=== PATIENT | male | born 1945 | race Caucasian/White ===

== ENCOUNTER 2021-09-12 14:11 | Outpatient (CLI) | payer MEDICARE | END 2021-09-12 14:12 | disposition home or self-care (01) | LOC: CT 14:11 | PROVIDERS: ATTEND Student in an Organized Health Care Education/Training Program | DX: C80.1 Malignant (primary) neoplasm, unspecified (principal); J98.11 Atelectasis | CPT/HCPCS: 70491; 71260; 82565 ==

== ENCOUNTER 2021-11-23 14:56 | Outpatient (CLI) | payer MEDICARE | END 2021-11-23 14:57 | disposition home or self-care (01) | LOC: PET 14:56 | PROVIDERS: ATTEND Radiology Radiation Oncology | DX: C09.1 Malignant neoplasm of tonsillar pillar (anterior) (posterior) (principal); K13.79 Other lesions of oral mucosa; C77.0 Secondary and unspecified malignant neoplasm of lymph nodes of head, face and neck; J39.2 Other diseases of pharynx | CPT/HCPCS: 78815; A9552 ==

== ENCOUNTER 2022-01-07 15:31 | Inpatient (IN) | payer OTHER, MEDICARE ==
[2022-01-07 16:44] LABS: #Lymphocytes 0.2 thou/uL (1.20-3.40); #Monocytes 0.2 thou/uL (0.11-0.59); #Neutrophils 1.1 thou/uL (1.40-6.50); %Eosinophils 0.1 % (0.0-10.0); %Lymphocytes 12.8 % (21.0-51.0); %Monocytes 12.4 % (0.0-10.0); %Neutrophils 74.7 % (42.0-75.0); Mean Corpuscular HGB CONC 34.1 g/dL (32.0-36.0); Mean Corpuscular Hemoglobin 32.9 pg (27.0-31.0); Mean Corpuscular Volume 96.3 fL (78.0-98.0); Mean Platelet Volume 7.8 fL (7.4-10.4); Platelet Count 39 thou/uL (130-400); RBC Distribution Width 10.8 % (11.5-14.5); Red Blood Cell (RBC) Count 3.03 mill/uL (4.70-6.10); White Blood Cell (WBC) Count 1.5 thou/uL (4.8-10.8)
[2022-01-07 17:01] LABS: Platelet Morphology Comment Appears Decreased; RBC Morphology Normal
[2022-01-07 17:07] LABS: ALT (SGPT) 25 U/L (8-55); AST (SGOT) 27 U/L (5-34); Albumin 3.6 g/dL (3.4-4.8); Alkaline Phosphatase 95 U/L (40-110); Anion Gap 18 mmol/L (10-20); BUN (Urea Nitrogen) 49 mg/dL (8.4-25.7); Bilirubin, Total 1.1 mg/dL (0.2-1.2); Calc. Creatinine Clearance 0 mL/min (70-130); Calcium 6.5 mg/dL (7.8-10.44); Carbon Dioxide 36 mmol/L (23-31); Chloride 92 mmol/L (98-107); Globulin 2.9 g/dL (2.4-3.5); Glucose 195 mg/dL (83-110); Protein, Total 6.5 g/dL (5.8-8.1); Sodium 143 mmol/L (136-145)
[2022-01-07 17:15] LABS: Potassium 2.6 mmol/L (3.5-5.1)
[2022-01-07 17:19] LABS: CKMB 0.3 ng/mL (0-6.6)
[2022-01-07] MEDS ORDERED: Calcium Gluc 4.6 MEQ/10 ML (100 MG/ML) ONE (17:24)
[2022-01-07] MEDS ORDERED: Potassium Chloride 20 MEQ TAB ONE (17:24)
[2022-01-07] MEDS ORDERED: Aspirin Chewable 81 MG TAB ONE ×2 (17:35→17:53)
[2022-01-07] MEDS ORDERED: Aspirin 325 MG TAB ONE (17:50)
[2022-01-07] MEDS ORDERED: Promethazine HCl 25 MG/ML VIAL IM PRN (19:39)
[2022-01-07] MEDS ORDERED: Acetaminophen 325 MG TAB PO PRN (19:39)
[2022-01-07] MEDS ORDERED: Ondansetron PF 4 MG/2 ML Vial IVP PRN (19:39)
[2022-01-07] MEDS ORDERED: hydrALAZINE 20 MG/ML VIAL SLOW IVP PRN (19:39)
[2022-01-07] MEDS ORDERED: Potassium Chloride 20 MEQ in Lactated Ringer's 1,000 ML IV SCH (19:45)
[2022-01-07] MEDS ORDERED: Lactated Ringer's 1,000 ML IV SCH (20:00)
[2022-01-07] MEDS ORDERED: Magnesium Sulfate 3 GM in Sodium Chloride 0.9% 100 ML IV SCH (20:00)
[2022-01-07] MEDS ORDERED: Calcium Chloride 13.6 MEQ in Sodium Chloride 0.9% 100 ML IVPB SCH (20:00)
[2022-01-07 20:15] LABS: Troponin I 0.046 ng/mL (< 0.028)
[2022-01-07] MEDS ORDERED: Sodium Chloride 0.9% 1,000 ML IV SCH (21:00)
[2022-01-07 22:19] LABS: Troponin I 0.052 ng/mL (< 0.028)
[2022-01-07] MEDS: Potassium Chloride 10 MEQ in Premix Bag 1 BAG IVPB SCH (23:10)
[2022-01-08] MEDS: Potassium Chloride 10 MEQ in Premix Bag 1 BAG IVPB SCH ×2 (00:12→01:18)
[2022-01-08] MEDS: Famotidine/PF 20 mg/2ml Vial SLOW IVP SCH ×2 (01:18→20:17)
[2022-01-08 03:46] LABS: INR-International Normal Ratio 1.2; PTT 35.4 sec (22.9-36.1); Prothrombin Time 15.1 sec (12.0-14.7)
[2022-01-08 03:56] LABS: Anion Gap 20 mmol/L (10-20); BUN (Urea Nitrogen) 44 mg/dL (8.4-25.7); Calc. Creatinine Clearance 23 mL/min (70-130); Calcium 7.5 mg/dL (7.8-10.44); Carbon Dioxide 24 mmol/L (23-31); Chloride 101 mmol/L (98-107); Glucose 96 mg/dL (83-110); Magnesium 2.2 mg/dL (1.6-2.6); Phosphorus 2.2 mg/dL (2.3-4.7); Sodium 142 mmol/L (136-145)
[2022-01-08 04:03] LABS: Band 4 % (5-11); Hemoglobin 8.8 g/dL (14.0-18.0); Hypochromia SLIGHT = 6-15 cells (100X) (0-5/hpf); Lymphocytes 16 % (21-51); MDiff Complete? YES; Mean Corpuscular Hemoglobin 32.9 pg (27.0-31.0); Mean Corpuscular Volume 96.8 fL (78.0-98.0); Mean Platelet Volume 6.8 fL (7.4-10.4); Monocytes 16 % (0-10); Neutrophil 64 % (42-75); Platelet Count 129 thou/uL (130-400); Platelet Morphology Comment Appears Adequate; RBC Distribution Width 10.7 % (11.5-14.5); Red Blood Cell (RBC) Count 2.69 mill/uL (4.70-6.10); White Blood Cell (WBC) Count 1.6 thou/uL (4.8-10.8)
[2022-01-08] MEDS ORDERED: Potassium Phosphate 30 MMOL in Sodium Chloride 0.9% 250 ML 250 ML IVPB SCH (04:15)
[2022-01-08] MEDS ORDERED: Loratadine 10 MG TAB PO SCH (21:00)
[2022-01-09 04:48] LABS: Hemoglobin 8.8 g/dL (14.0-18.0); Mean Corpuscular HGB CONC 34.8 g/dL (32.0-36.0); Mean Corpuscular Hemoglobin 33.6 pg (27.0-31.0); Mean Corpuscular Volume 96.6 fL (78.0-98.0); Mean Platelet Volume 7.5 fL (7.4-10.4); Platelet Count 86 thou/uL (130-400); RBC Distribution Width 10.7 % (11.5-14.5); Red Blood Cell (RBC) Count 2.61 mill/uL (4.70-6.10); White Blood Cell (WBC) Count 1.3 thou/uL (4.8-10.8)
[2022-01-09 04:49] LABS: Band 22 % (5-11); Large Platelets SLIGHT; Lymphocytes 23 % (21-51); MDiff Complete? YES; Monocytes 11 % (0-10); Neutrophil 44 % (42-75); Platelet Morphology Comment Appears Decreased; RBC Morphology Normal
[2022-01-09 04:53] LABS: Troponin I 0.029 ng/mL (< 0.028)
[2022-01-09 06:25] LABS: Anion Gap 19 mmol/L (10-20); BUN (Urea Nitrogen) 41 mg/dL (8.4-25.7); Calc. Creatinine Clearance 26 mL/min (70-130); Calcium 6.3 mg/dL (7.8-10.44); Carbon Dioxide 25 mmol/L (23-31); Chloride 107 mmol/L (98-107); Glucose 145 mg/dL (83-110); Magnesium 1.5 mg/dL (1.6-2.6); Phosphorus 2.3 mg/dL (2.3-4.7); Potassium 2.6 mmol/L (3.5-5.1); Sodium 148 mmol/L (136-145)
[2022-01-09] MEDS ORDERED: POTASSIUM PHOSPHATE IVPB SCH (08:00)
[2022-01-09] MEDS ORDERED: Calcium Chloride 13.6 MEQ in Sodium Chloride 0.9% 100 ML IVPB SCH (08:00)
[2022-01-09] MEDS ORDERED: MAGNESIUM SULFATE IVPB SCH (08:00)
[2022-01-09] MEDS ORDERED: [UNRECOGNIZED DRUG - OTHER] IVPB SCH (08:00)
[2022-01-09] MEDS ORDERED: ADMIXTURE FEE IVPB SCH (08:00)
[2022-01-09] MEDS ORDERED: Cetirizine HCl 10 MG TAB PO SCH (09:00)
[2022-01-09] MEDS: Loratadine 10 MG TAB PO SCH (09:31)
[2022-01-09] MEDS: Famotidine/PF 20 mg/2ml Vial SLOW IVP SCH (21:36)
[2022-01-10 06:00] LABS: Anion Gap 15 mmol/L (10-20); BUN (Urea Nitrogen) 34 mg/dL (8.4-25.7); Calc. Creatinine Clearance 27 mL/min (70-130); Calcium 6.5 mg/dL (7.8-10.44); Carbon Dioxide 34 mmol/L (23-31); Chloride 99 mmol/L (98-107); Glucose 154 mg/dL (83-110); Magnesium 1.7 mg/dL (1.6-2.6); Phosphorus 2.5 mg/dL (2.3-4.7); Sodium 145 mmol/L (136-145)
[2022-01-10 06:08] LABS: Potassium 2.7 mmol/L (3.5-5.1)
[2022-01-10 06:13] LABS: Band 20 % (5-11); Hemoglobin 8.6 g/dL (14.0-18.0); Hypochromia SLIGHT = 6-15 cells (100X) (0-5/hpf); Lymphocytes 16 % (21-51); MDiff Complete? YES; Mean Corpuscular HGB CONC 34.8 g/dL (32.0-36.0); Mean Corpuscular Hemoglobin 33.6 pg (27.0-31.0); Mean Corpuscular Volume 96.7 fL (78.0-98.0); Mean Platelet Volume 7.2 fL (7.4-10.4); Neutrophil 64 % (42-75); Platelet Count 99 thou/uL (130-400); Platelet Morphology Comment Appears Decreased; RBC Distribution Width 10.7 % (11.5-14.5); Red Blood Cell (RBC) Count 2.55 mill/uL (4.70-6.10)
[2022-01-10] MEDS ORDERED: Calcium Gluconate 4.6 MEQ in Sodium Chloride 0.9% 100 ML IVPB SCH (06:42)
[2022-01-10] MEDS ORDERED: Potassium Phosphate 30 MMOL, Magnesium Sulfate 2 GM in Sodium Chloride 0.9% 250 ML IVPB SCH (06:45)
[2022-01-10] MEDS ORDERED: Magnesium 2 GM/50 ML(in water) 3 GM in Premix Bag 1 BAG IVPB SCH (06:45)
[2022-01-10] MEDS ORDERED: Potassium Chloride 20 MEQ TAB PO SCH (08:00)
[2022-01-10] MEDS: Loratadine 10 MG TAB PO SCH (10:02)
[2022-01-10] MEDS: Famotidine/PF 20 mg/2ml Vial SLOW IVP SCH (20:37)
[2022-01-11 05:15] LABS: Hemoglobin 8.3 g/dL (14.0-18.0); Mean Corpuscular HGB CONC 33.7 g/dL (32.0-36.0); Mean Corpuscular Hemoglobin 32.7 pg (27.0-31.0); Mean Corpuscular Volume 97.2 fL (78.0-98.0); Mean Platelet Volume 6.9 fL (7.4-10.4); Platelet Count 85 thou/uL (130-400); RBC Distribution Width 10.6 % (11.5-14.5); Red Blood Cell (RBC) Count 2.54 mill/uL (4.70-6.10); White Blood Cell (WBC) Count 1.1 thou/uL (4.8-10.8)
[2022-01-11 05:30] LABS: Anion Gap 13 mmol/L (10-20); BUN (Urea Nitrogen) 32 mg/dL (8.4-25.7); Calc. Creatinine Clearance 27 mL/min (70-130); Calcium 6.2 mg/dL (7.8-10.44); Carbon Dioxide 37 mmol/L (23-31); Chloride 98 mmol/L (98-107); Glucose 175 mg/dL (83-110); Magnesium 1.7 mg/dL (1.6-2.6); Phosphorus 2.6 mg/dL (2.3-4.7); Sodium 145 mmol/L (136-145)
[2022-01-11 05:35] LABS: Potassium 2.7 mmol/L (3.5-5.1)
[2022-01-11 05:50] LABS: Band 38 % (5-11); Lymphocytes 22 % (21-51); MDiff Complete? YES; Metamyelocyte 2 % (0-0); Monocytes 13 % (0-10); Neutrophil 25 % (42-75); Platelet Morphology Comment Appears Decreased
[2022-01-11] MEDS ORDERED: Magnesium 2 GM/50 ML(in water) 3 GM in Premix Bag 1 BAG IVPB SCH (06:45)
[2022-01-11] MEDS ORDERED: ADMIXTURE FEE IVPB SCH (08:00)
[2022-01-11] MEDS ORDERED: [UNRECOGNIZED DRUG - OTHER] IVPB SCH (08:00)
[2022-01-11] MEDS ORDERED: POTASSIUM PHOSPHATE IVPB SCH (08:00)
[2022-01-11] MEDS ORDERED: MAGNESIUM SULFATE IVPB SCH (08:00)
[2022-01-11] MEDS ORDERED: Potassium Chloride 20 MEQ TAB PO SCH (09:15)
[2022-01-11] MEDS: Loratadine 10 MG TAB PO SCH (10:37)
[2022-01-11 14:54] VITALS: BMI 16.6
[2022-01-11] MEDS: Famotidine/PF 20 mg/2ml Vial SLOW IVP SCH (20:08)
[2022-01-12 06:27] LABS: Hemoglobin 8.4 g/dL (14.0-18.0); Mean Corpuscular HGB CONC 34.6 g/dL (32.0-36.0); Mean Corpuscular Hemoglobin 33.4 pg (27.0-31.0); Mean Corpuscular Volume 96.4 fL (78.0-98.0); Mean Platelet Volume 7.5 fL (7.4-10.4); Platelet Count 81 thou/uL (130-400); RBC Distribution Width 10.8 % (11.5-14.5); Red Blood Cell (RBC) Count 2.52 mill/uL (4.70-6.10); White Blood Cell (WBC) Count 1.4 thou/uL (4.8-10.8)
[2022-01-12 06:28] LABS: Anion Gap 13 mmol/L (10-20); BUN (Urea Nitrogen) 34 mg/dL (8.4-25.7); Calc. Creatinine Clearance 30 mL/min (70-130); Carbon Dioxide 36 mmol/L (23-31); Chloride 99 mmol/L (98-107); Glucose 183 mg/dL (83-110); Sodium 145 mmol/L (136-145)
[2022-01-12 06:33] LABS: Band 23 % (5-11); Eosinophils 1 % (0-10); Lymphocytes 28 % (21-51); MDiff Complete? YES; Monocytes 9 % (0-10); Neutrophil 39 % (42-75); Platelet Morphology Comment Appears Decreased
[2022-01-12 06:34] LABS: Calcium 5.8 mg/dL (7.8-10.44)
[2022-01-12] MEDS ORDERED: Calcium Gluconate 4.6 MEQ in Sodium Chloride 0.9% 100 ML IVPB SCH (07:30)
[2022-01-12] MEDS: Loratadine 10 MG TAB PO SCH (07:59)
[2022-01-12] MEDS ORDERED: Potassium Chloride 20 MEQ TAB PO SCH (10:00)
[2022-01-12] MEDS ORDERED: Metamucil PACK PER TUBE SCH (14:45)
[2022-01-12] MEDS: Metamucil PACK PER TUBE SCH (15:35)
[2022-01-12] MEDS: Famotidine/PF 20 mg/2ml Vial SLOW IVP SCH (20:04)
[2022-01-13 06:46] LABS: Anion Gap 14 mmol/L (10-20); BUN (Urea Nitrogen) 33 mg/dL (8.4-25.7); Calc. Creatinine Clearance 32 mL/min (70-130); Carbon Dioxide 34 mmol/L (23-31); Chloride 97 mmol/L (98-107); Glucose 193 mg/dL (83-110); Magnesium 1.3 mg/dL (1.6-2.6); Phosphorus 2.9 mg/dL (2.3-4.7); Potassium 3.1 mmol/L (3.5-5.1); Sodium 142 mmol/L (136-145)
[2022-01-13 06:51] LABS: Calcium 5.6 mg/dL (7.8-10.44)
[2022-01-13] MEDS ORDERED: Potassium Chloride 20 MEQ TAB PO SCH (07:15)
[2022-01-13] MEDS ORDERED: Magnesium Sulfate In Water 4 GM in Premix Bag 1 BAG IVPB SCH (07:30)
[2022-01-13] MEDS: Loratadine 10 MG TAB PO SCH (08:15)
[2022-01-13] MEDS: Calcium Chloride 13.6 MEQ in Sodium Chloride 0.9% 100 ML IVPB SCH ×2 (13:57→17:59)
[2022-01-13] MEDS ORDERED: Potassium Phosphate 30 MMOL in Sodium Chloride 0.9% 250 ML 250 ML IVPB SCH (15:00)
[2022-01-13] MEDS ORDERED: Calcium Chloride 13.6 MEQ in Sodium Chloride 0.9% 100 ML IVPB SCH (17:30)
[2022-01-13] MEDS: Famotidine/PF 20 mg/2ml Vial SLOW IVP SCH (20:47)
[2022-01-13] MEDS: Magnesium Oxide 400 MG TAB PO SCH (20:48)
[2022-01-14 06:12] LABS: Albumin 2.9 g/dL (3.4-4.8); Anion Gap 13 mmol/L (10-20); BUN (Urea Nitrogen) 37 mg/dL (8.4-25.7); Calc. Creatinine Clearance 33 mL/min (70-130); Calcium 6.8 mg/dL (7.8-10.44); Carbon Dioxide 33 mmol/L (23-31); Chloride 98 mmol/L (98-107); Glucose 176 mg/dL (83-110); Phosphorus 3.8 mg/dL (2.3-4.7); Potassium 3.2 mmol/L (3.5-5.1); Sodium 141 mmol/L (136-145)
[2022-01-14 06:38] LABS: Band 33 % (5-11); Lymphocytes 25 % (21-51); MDiff Complete? YES; Mean Corpuscular Hemoglobin 33.7 pg (27.0-31.0); Mean Corpuscular Volume 96.2 fL (78.0-98.0); Mean Platelet Volume 7.1 fL (7.4-10.4); Monocytes 18 % (0-10); Neutrophil 24 % (42-75); Platelet Count 75 thou/uL (130-400); Platelet Morphology Comment Appears Decreased; RBC Distribution Width 11.1 % (11.5-14.5); Red Blood Cell (RBC) Count 2.36 mill/uL (4.70-6.10); White Blood Cell (WBC) Count 1.9 thou/uL (4.8-10.8)
[2022-01-14] MEDS ORDERED: Potassium Chloride 20 MEQ TAB PO SCH (08:00)
[2022-01-14] MEDS: Metamucil PACK PER TUBE SCH (08:23)
[2022-01-14] MEDS: Loratadine 10 MG TAB PO SCH (08:23)
[2022-01-14] MEDS: Magnesium Oxide 400 MG TAB PO SCH (08:23)
[2022-01-14] MEDS ORDERED: Calcium Carbonate 500 MG ChewTAB PO SCH (09:00)
[2022-01-14 11:48] VITALS: TEMP 97.9
[2022-01-14 15:35] VITALS: BP 119/73
== END 2022-01-14 16:05 | DRG 85 ==
LOC: ERS 15:31 → CCU 20:14 → 2SW 21:00 → CCU 21:04 → IMCU/EMU 01-08 10:02 → SURG B 01-09 15:45
PROVIDERS: ADMIT Surgery; ATTEND Surgery
PROC: 30233R1 Transfusion of Nonautologous Platelets into Peripheral Vein, Percutaneous Approach (ICD-10-PCS; principal; 2022-01-07)
DX: S06.6X0A Traumatic subarachnoid hemorrhage without loss of consciousness, initial encounter (principal); D61.810 Antineoplastic chemotherapy induced pancytopenia; E43 Unspecified severe protein-calorie malnutrition; R64 Cachexia; C15.9 Malignant neoplasm of esophagus, unspecified; N17.9 Acute kidney failure, unspecified; Z68.1 Body mass index [BMI] 19.9 or less, adult; I24.8 Other forms of acute ischemic heart disease; W19.XXXA Unspecified fall, initial encounter; N18.9 Chronic kidney disease, unspecified; E87.5 Hyperkalemia; E83.51 Hypocalcemia; E86.0 Dehydration; T45.1X5A Adverse effect of antineoplastic and immunosuppressive drugs, initial encounter; E87.6 Hypokalemia; E83.39 Other disorders of phosphorus metabolism; Y92.89 Other specified places as the place of occurrence of the external cause; Z88.0 Allergy status to penicillin; Z91.09 Other allergy status, other than to drugs and biological substances; Z87.891 Personal history of nicotine dependence
CPT/HCPCS: 36415; 36430; 70450; 70496; 70553; 71045; 77336; 77386; 80048; 80053; 82040; 82553; 83735; 83880; 84100; 84484; 85025; 85610; 85730; 86850; 86900; 86901; 87324; 87449; 93005; 96374; G0390; J0610; J3475; J3480; J3490; J7030; J7050; J7120; P9035; S0028

== ENCOUNTER 2022-02-05 16:53 | Observation (INO) | payer MEDICARE ==
[~2022-02-05 16:53] MED LIST: Iopamidol 370 76% 100 ML VIAL ONE
[2022-02-05 17:43] LABS: #Eosinphils 0.1 thou/uL (0.0-0.7); #Lymphocytes 0.6 thou/uL (1.20-3.40); #Monocytes 0.6 thou/uL (0.11-0.59); #Neutrophils 4.3 thou/uL (1.40-6.50); %Basophils 0.5 % (0.0-1.0); %Eosinophils 1.2 % (0.0-10.0); %Lymphocytes 10.7 % (21.0-51.0); %Monocytes 9.9 % (0.0-10.0); %Neutrophils 77.7 % (42.0-75.0); Hemoglobin 7.3 g/dL (14.0-18.0); Mean Corpuscular HGB CONC 33.8 g/dL (32.0-36.0); Mean Corpuscular Hemoglobin 34.4 pg (27.0-31.0); Mean Platelet Volume 5.8 fL (7.4-10.4); Platelet Count 222 thou/uL (130-400); RBC Distribution Width 14.5 % (11.5-14.5); Red Blood Cell (RBC) Count 2.11 mill/uL (4.70-6.10); White Blood Cell (WBC) Count 5.6 thou/uL (4.8-10.8)
[2022-02-05 18:10] LABS: ALT (SGPT) 10 U/L (8-55); AST (SGOT) 14 U/L (5-34); Albumin 3.5 g/dL (3.4-4.8); Alkaline Phosphatase 144 U/L (40-110); Anion Gap 13 mmol/L (10-20); BUN (Urea Nitrogen) 31 mg/dL (8.4-25.7); Bilirubin, Total 0.4 mg/dL (0.2-1.2); Calc. Creatinine Clearance 0 mL/min (70-130); Calcium 9.2 mg/dL (7.8-10.44); Carbon Dioxide 28 mmol/L (23-31); Chloride 97 mmol/L (98-107); Globulin 3.5 g/dL (2.4-3.5); Glucose 101 mg/dL (83-110); Potassium 5.4 mmol/L (3.5-5.1); Sodium 133 mmol/L (136-145)
[2022-02-05 18:35] LABS: Bilirubin Negative (Negative); Blood, Urine Negative (Negative); Clarity Clear (Clear); Glucose, Urine (Dipstick) Normal (Negative); Ketone, Urine Negative (Negative); Leukocyte Negative Leu/uL (Negative); Nitrite Negative (Negative); Protein, Urine (Dipstick) Negative (Neg-Trace); Urobilinogen Normal mg/dL (Less than 2)
[2022-02-05] MEDS ORDERED: Ondansetron PF 4 MG/2 ML Vial IVP PRN (22:02)
[2022-02-05] MEDS ORDERED: Acetaminophen 325 MG TAB PER TUBE PRN (22:02)
[2022-02-05] MEDS ORDERED: Fleet Enema 133 ML BOT PR SCH (22:30)
[2022-02-06] MEDS ORDERED: Sodium Chloride 0.9% 500 ML IV SCH (02:00)
[2022-02-06 02:40] VITALS: BMI 16.7
[2022-02-06 04:18] LABS: #Eosinphils 0.1 thou/uL (0.0-0.7); #Lymphocytes 0.5 thou/uL (1.20-3.40); #Monocytes 0.6 thou/uL (0.11-0.59); #Neutrophils 3.6 thou/uL (1.40-6.50); %Eosinophils 1.2 % (0.0-10.0); %Lymphocytes 10.9 % (21.0-51.0); %Neutrophils 74.9 % (42.0-75.0); Hemoglobin 7.1 g/dL (14.0-18.0); Mean Corpuscular HGB CONC 34.2 g/dL (32.0-36.0); Mean Platelet Volume 6.3 fL (7.4-10.4); Platelet Count 209 thou/uL (130-400); RBC Distribution Width 14.7 % (11.5-14.5); Red Blood Cell (RBC) Count 2.02 mill/uL (4.70-6.10); White Blood Cell (WBC) Count 4.9 thou/uL (4.8-10.8)
[2022-02-06 04:38] LABS: Anion Gap 14 mmol/L (10-20); BUN (Urea Nitrogen) 31 mg/dL (8.4-25.7); Calc. Creatinine Clearance 40 mL/min (70-130); Calcium 9.4 mg/dL (7.8-10.44); Carbon Dioxide 26 mmol/L (23-31); Chloride 99 mmol/L (98-107); Glucose 105 mg/dL (83-110); Potassium 5.1 mmol/L (3.5-5.1); Sodium 134 mmol/L (136-145)
[2022-02-06] MEDS: Polyethylene Glycol 3350 17 GM Packet PER TUBE SCH (10:45)
[2022-02-06 12:00] LABS: SARS-CoV-2 PCR by NAA Not Detected (NotDetected)
[2022-02-06] MEDS: Bisacodyl 10 MG SUPP PR SCH ×2 (12:29→18:23)
[2022-02-06] MEDS: Fleet Enema 133 ML BOT PR SCH ×2 (15:37→22:00)
[2022-02-06] MEDS ORDERED: Pancrelipase DR 12,000 1 CAP FS PRN (17:30)
[2022-02-06] MEDS ORDERED: Sodium Bicarbonate Tab 325 MG TAB PER TUBE PRN (17:30)
[2022-02-06] MEDS ORDERED: Senokot S 8.6-50 MG TAB PO SCH (21:00)
[2022-02-07] MEDS: Bisacodyl 10 MG SUPP PR SCH ×2 (01:40→06:30)
[2022-02-07 04:25] LABS: #Eosinphils 0.1 thou/uL (0.0-0.7); #Lymphocytes 0.6 thou/uL (1.20-3.40); #Monocytes 0.5 thou/uL (0.11-0.59); #Neutrophils 2.7 thou/uL (1.40-6.50); %Basophils 0.4 % (0.0-1.0); %Eosinophils 2.4 % (0.0-10.0); %Lymphocytes 14.9 % (21.0-51.0); %Neutrophils 69.3 % (42.0-75.0); Hemoglobin 6.4 g/dL (14.0-18.0); Mean Corpuscular HGB CONC 34.7 g/dL (32.0-36.0); Mean Corpuscular Hemoglobin 35.6 pg (27.0-31.0); Mean Platelet Volume 6.1 fL (7.4-10.4); Platelet Count 189 thou/uL (130-400); RBC Distribution Width 14.9 % (11.5-14.5); White Blood Cell (WBC) Count 3.9 thou/uL (4.8-10.8)
[2022-02-07 04:43] LABS: Anion Gap 13 mmol/L (10-20); BUN (Urea Nitrogen) 36 mg/dL (8.4-25.7); Calc. Creatinine Clearance 36 mL/min (70-130); Calcium 8.8 mg/dL (7.8-10.44); Carbon Dioxide 27 mmol/L (23-31); Chloride 98 mmol/L (98-107); Glucose 236 mg/dL (83-110); Potassium 4.5 mmol/L (3.5-5.1); Sodium 133 mmol/L (136-145)
[2022-02-07] MEDS: Fleet Enema 133 ML BOT PR SCH ×2 (05:29→10:02)
[2022-02-07] MEDS ORDERED: Loratadine 10 MG TAB PO SCH (09:00)
[2022-02-07] MEDS ORDERED: Cetirizine HCl 10 MG TAB PO SCH (09:00)
[2022-02-07] MEDS: Polyethylene Glycol 3350 17 GM Packet PER TUBE SCH (10:01)
[2022-02-07 11:38] LABS: Hemoglobin 9.3 g/dL (14.0-18.0)
[2022-02-07 13:16] VITALS: BP 127/60; TEMP 98
== END 2022-02-07 14:36 ==
LOC: ERS 16:53 → 2NO 21:04
PROVIDERS: ADMIT Emergency Medicine; ATTEND Emergency Medicine
DX: K59.00 Constipation, unspecified (principal); K52.89 Other specified noninfective gastroenteritis and colitis; D64.9 Anemia, unspecified; E87.1 Hypo-osmolality and hyponatremia; C11.1 Malignant neoplasm of posterior wall of nasopharynx; K57.30 Diverticulosis of large intestine without perforation or abscess without bleeding; N40.0 Benign prostatic hyperplasia without lower urinary tract symptoms; I70.8 Atherosclerosis of other arteries; Z87.891 Personal history of nicotine dependence; Z79.899 Other long term (current) drug therapy; Z88.0 Allergy status to penicillin; Z93.1 Gastrostomy status; Z20.822 Contact with and (suspected) exposure to COVID-19
CPT/HCPCS: 36430; 74177; 80048 ×2; 80053; 81003; 82271; 83880; 85014; 85018; 85025 ×3; 86850; 86900; 86901; 86920; 87086; 97139; 97530; 99285; P9016; U0003; U0005; 36415; 82274; G0378; J7030

== ENCOUNTER 2023-03-26 13:06 | Outpatient (CLI) | payer MEDICARE | END 2023-03-26 13:07 | disposition home or self-care (01) | LOC: CT 13:06 | PROVIDERS: ATTEND Dentist Oral and Maxillofacial Surgery | DX: H92.02 Otalgia, left ear (principal) | CPT/HCPCS: 70488; 82565 ==

== ENCOUNTER 2023-05-08 13:12 | Outpatient (CLI) | payer MEDICARE ==
[~2023-05-08 13:12] MED LIST changes: -Iopamidol 370 76% 100 ML VIAL ONE; +Magnevist 469MG/ML 20 ML VIAL ONE
== END 2023-05-08 13:13 | disposition home or self-care (01) ==
LOC: PET 13:12
PROVIDERS: ATTEND Internal Medicine Hematology & Oncology
DX: C09.1 Malignant neoplasm of tonsillar pillar (anterior) (posterior) (principal); R59.0 Localized enlarged lymph nodes; R94.8 Abnormal results of function studies of other organs and systems; R60.9 Edema, unspecified
CPT/HCPCS: 70553; 78815; A9552